=== PATIENT | male | born 1945 | race Caucasian/White ===

== ENCOUNTER → 2021-01-17 09:28 | Outpatient (BNVA) | payer MEDICARE, SELFPAY | PROVIDERS: Referring Provider Internal Medicine; Visit Provider Podiatrist Foot & Ankle Surgery | DX: M79.671 Pain in right foot (principal); M19.071 Primary osteoarthritis, right ankle and foot | CPT/HCPCS: 73630 ==

== ENCOUNTER 2021-02-05 13:44 | Outpatient (CLI) | payer MEDICARE, SELFPAY ==
[2021-02-05 15:01] LABS: Basophils % 0.1 %; Eosinophils % 0.3 %; Hematocrit 33.9 % (42.0-52.0); Hemoglobin 10.8 g/dL (11.7-16.6); Lymphocytes # 1.2 10^3/uL (0.8-4.8); Lymphocytes % 16.2 %; Mean Corpuscular HGB Conc 31.9 g/dL (30.0-36.0); Mean Corpuscular Hemoglobin 26.8 pg (28.0-34.0); Mean Corpuscular Volume 84.1 fl (80-94); Monocytes # 1.5 10^3/uL (0.2-0.9); Monocytes % 19.1 %; Neutrophils # 4.51 10^3/uL (1.8-7.7); Neutrophils % 59.1 %; Nucleated Red Blood Cells % 0 %; Platelet Count 127 10^3/cmm (130-400); Red Blood Count 4.03 10^6/uL (4.1-5.3); Red Cell Distribution Width 17.5 % (12.1-15.1); White Blood Count 7.6 10^3/uL (4.0-10.0)
[2021-02-05 15:23] LABS: Slide Review Slide Review Perform
--- NOTE | 2021-02-09 11:50 | ONC CON_ITS ---
Dr. Miguel New Patient Note Patient: Serg Lindsey Unit #: [id number]: 1945 Dicatated By: Paul Miguel M.D.Date of Visit: Feb 05, 2021 Onc MED New Patient/Consult Referring Physician: Dr. Ben Wan M.D. History of Present Illness: Mr. Serg Lindsey, is a 75-year-old gentleman, usually in a good health, rarely see a physician until recently went to Dr. Wan for routine follow-up, lab work-up done on December 13, 2020 showed white blood count 9.7 hemoglobin 11.6 g normal being 13.5-18, hematocrit 35.4 platelets 140,000 normal being 150-451 and Differential shows monocytes 21.7% normal being less than 10% repeat CBC done on December 21, 2020 showed white blood count 12.2 hemoglobin 11.9 hematocrit 35.5 platelets 137,000 and anemia work-up done on December 21, 2020 shows iron 138 TIBC 254 iron saturation 54% vitamin B12 444 TSH 1.50,Ferritin 112, reticulocyte count 2.1%, peripheral blood smear shows leukocytosis and monocytosis and presence of schistocytes Patient denies any night sweats, denies any recurrent fever but weight loss, patient is on keto diet, denies smoking but consume alcohol/martini on regular basis. Denies any melena hematochezia, denies any hemoptysis hematemesis, denies any jaundice, denies any urine or stool color changes, denies any gum swelling, denies any recent flulike symptom or infection Past Medical History: Mr. Lindsey's medical history consists of hypertension. Past Surgical History: Mr. Lindsey's surgical/procedural history consists of vericose vein ligation. Medications: Lisinopril 1 Tablet (of 10 mg) Oral daily, Meloxicam 1 Tablet (of 15 mg) Oral daily, traMADol HCl 1 Tablet (of 50 mg) Oral q 6 hours PRN Allergies: No Known Allergies. Social History: Mr. Lindsey is single. He drinks occasionally. Family History: The family history is unremarkable. Review Of Symptoms: Review of Systems is not available for this patient. Vital Signs: Performed on Feb 05, 2021 15:51: 0, 0, 29.56, 2.11 sq.m, 70 in, 98 %, 73 /min, 20 /min, 171/84 mm(hg) (HIGH), 98.8 F, and 206.0 lbs (HIGH). Performance Status: 0 - Fully active, able to carry on all predisease activities without restrictions. (ECOG) Physical Examination: ENMT - No mouth sores, no thrush, no jaundice, no cervical lymphadenopathy, Respiratory - Lungs are clear to auscultation, Cardiovascular - Regular rate and rhythm of heart, Abdomen - Soft, bowel sounds present, Extremities - No visible edema. Lab/Imaging: Most recent lab results are not available for this patient. Impression: Normocytic normochromic anemia etiology unclear, anemia work-up including iron studies, B12 done on December 21, 2020 showed normal values but low reticulocyte count, consistent with underlying bone marrow etiology, considering his age myelodysplasia cannot be ruled out Monocytosis observed on CBC done on December 13, 2020-on February 05, 2021 Plan: Discussed with patient regarding his labs from today shows white blood count 7.6, hemoglobin 10.8 hematocrit 33.9 platelets 127,000 differential shows absolute neutrophil count 4510, monocytes 1500 normal being less than 900, MCV 84.1 Clinically, patient is doing well with no new signs symptoms, with well compensated mild anemia, etiology unclear as initial anemia work-up done by PMD including iron studies, B12 level, shows normal value but mildly low reticulocyte count, considering his age underlying myelodysplasia cannot be ruled out, other concern is mild monocytosis, etiology could be multifactorial too, including underlying inflammation or autoimmune disorder or recovery from recent infection or bone marrow etiology like chronic myelomonocytic leukemia or monocytic or myeloproliferative disorder or leukemoid reaction, as CBC done on December 21, 2020 showed mild leukocytosis, which has resolved now and patient also has mild thrombocytopenia etiology again could be underlying MDS or myeloproliferative disorder discussed with patient and There is no evidence of jaundice and his lab work-up done on December 13, 2020 showed bilirubin was 0.8, schistocytes seen on peripheral smear could be artifact or patient may have mild hemolysis at this point, bone marrow was recommended versus observation and repeating CBC if there is a progressive leukocytosis or monocytosis or progressive thrombocytopenia consider bone marrow otherwise observe, patient prefer observation and he will return to clinic in 2 months with CBC, patient was advised in case there is a evidence of gross bleeding or progressive generalized weakness and fatigue or gum bleeding, or jaundice he need to call us otherwise return to clinic 2 weeks with CBC with a differential Signed By: Paul Miguel M.D. <<Signature on File>>
== END 2021-02-05 13:45 | disposition home or self-care (01) ==
LOC: ONCMED 13:51
PROVIDERS: PCP Internal Medicine; Visit Provider Internal Medicine Hematology & Oncology
DX: D64.9 Anemia, unspecified (principal); D72.821 Monocytosis (symptomatic); Z79.899 Other long term (current) drug therapy
CPT/HCPCS: 36415; 85025; 99204

== ENCOUNTER 2021-04-17 09:47 | Outpatient (CLI) | payer MEDICARE, SELFPAY ==
[2021-04-17 10:21] LABS: Basophils % 0.4 %; Eosinophils # 0.1 10^3/uL (0.0-0.8); Hematocrit 35.3 % (42.0-52.0); Hemoglobin 11.5 g/dL (11.7-16.6); Lymphocytes # 1.7 10^3/uL (0.8-4.8); Lymphocytes % 15.5 %; Mean Corpuscular HGB Conc 32.6 g/dL (30.0-36.0); Mean Corpuscular Hemoglobin 26.9 pg (28.0-34.0); Mean Corpuscular Volume 82.7 fl (80-94); Monocytes # 2.5 10^3/uL (0.2-0.9); Monocytes % 22.4 %; Neutrophils # 6.09 10^3/uL (1.8-7.7); Neutrophils % 54.9 %; Nucleated Red Blood Cells % 0 %; Platelet Count 113 10^3/cmm (130-400); Red Blood Count 4.27 10^6/uL (4.1-5.3); White Blood Count 11.1 10^3/uL (4.0-10.0)
[2021-04-17 10:56] LABS: Alanine Aminotransferase 7 U/L (0-41); Albumin Level 4.8 g/dL (3.5-5.2); Alkaline Phosphatase 66 IU/L (40-130); Anion Gap 16.3 (5-19); Aspartate Amino Transferase 14 U/L (0-40); Blood Urea Nitrogen 10 mg/dL (8-23); Calcium 9.7 mg/dL (8.5-10.5); Carbon Dioxide 24 mmol/L (22-29); Chloride 101 mmol/L (98-107); Globulin 2.8 g/dL (1.3-4.6); Glucose 111 mg/dL (65-115); Osmolality Calculated 284 mOsm/kg (285-295); Potassium 4.3 mmol/L (3.5-5.1); Sodium 137 mmol/L (136-145); Total Bilirubin 0.8 mg/dL (0.15-1.2); Total Protein 7.6 g/dL (6.6-8.7)
[2021-04-17 11:05] LABS: Slide Review Slide Review Perform
--- NOTE | 2021-04-19 16:57 | ONC FU_ITS ---
Dr. Miguel follow up note Patient: Serg Lindsey Unit #: [id number]: 1945 Dicatated By: Paul Miguel M.D.Date of Visit:Apr 17, 2021 Onc Med Follow-up/Prog Note History of Present Illness: Mr. Serg Lindsey, is a 75-year-old gentleman, usually in a good health, rarely see a physician until recently went to Dr. Wan for routine follow-up, lab work-up done on December 13, 2020 showed white blood count 9.7 hemoglobin 11.6 g normal being 13.5-18, hematocrit 35.4 platelets 140,000 normal being 150-451 and Differential shows monocytes 21.7% normal being less than 10% repeat CBC done on December 21, 2020 showed white blood count 12.2 hemoglobin 11.9 hematocrit 35.5 platelets 137,000 and anemia work-up done on December 21, 2020 shows iron 138 TIBC 254 iron saturation 54% vitamin B12 444 TSH 1.50,Ferritin 112, reticulocyte count 2.1%, peripheral blood smear shows leukocytosis and monocytosis and presence of schistocytes Patient denies any night sweats, denies any recurrent fever but weight loss, patient is on keto diet, denies smoking but consume alcohol/martini on regular basis. Denies any melena hematochezia, denies any hemoptysis hematemesis, denies any jaundice, denies any urine or stool color changes, denies any gum swelling, denies any recent flulike symptom or infection Came for follow-up, denies any specific complaints, no fever chills, no nausea or vomiting, no diarrhea constipation, no melena or hematochezia, no nosebleed or gum bleed, no hemoptysis hematemesis, no headaches, no jaundice, no dysuria or hematuria, no sinus related symptoms, overall feeling well Medications: Lisinopril 1 Tablet (of 10 mg) Oral daily, traMADol HCl 1 Tablet (of 50 mg) Oral q 6 hours PRN Allergies: No Known Allergies. Review of Systems: Review of Systems is not available for this patient. Vital Signs: Performed on Apr 17, 2021 11:41 Height - 70.00 in Weight - 210.6 lbs (HIGH) BSA - 2.13 sq.m BMI - 30.22 (HIGH) Temperature - 97.8 F (LOW) Pulse - 71 /min Respiration - 20 /min BP - 171/78 mm(hg) (HIGH) O2 Sat - 99 % Pain - 0 Fatigue - 2 Performance Status: 1 - No physically strenuous activity, but ambulatory and able to carry out light or sedentary work (e.g. office work, light house work). (ECOG) Physical Examination: Respiratory - Lungs are clear to auscultation, Cardiovascular - Regular rate and rhythm of heart, Abdomen - Soft, bowel sounds present, Extremities - No visible edema. Lab/Imaging: Most recent lab results are not available for this patient. Impression: Normocytic normochromic anemia etiology unclear, anemia work-up including iron studies, B12 done on December 21, 2020 showed normal values but low reticulocyte count, consistent with underlying bone marrow etiology, considering his age myelodysplasia cannot be ruled out Monocytosis observed on CBC done on December 13, 2020-on February 05, 2021 Plan: Discussed with patient regarding his labs white blood count 11.1 hemoglobin 11.5 g compared to 10.8 previously hematocrit 35.3 platelets 113,000 compared to 127,000 previously and MCV 82.7 CMP within normal limits Clinically, patient doing well with no new signs symptoms his follow-up CBC shows improvement in his mild anemia but persistent mild thrombocytopenia and now mild leukocytosis, patient has no signs symptom suggestive of infection, at this point ,we will continue to monitor and then he will return to clinic in the last week of May 2021 with CBC, as on June 08, patient is going out of [facility] to [place] for 2 months Signed By: Paul Miguel M.D. <<Signature on File>>
== END 2021-04-17 09:48 | disposition home or self-care (01) ==
LOC: ONCMED 09:52
PROVIDERS: PCP Internal Medicine; Visit Provider Internal Medicine Hematology & Oncology
DX: D64.9 Anemia, unspecified (principal); D72.821 Monocytosis (symptomatic); Z79.899 Other long term (current) drug therapy
CPT/HCPCS: 36415; 80053; 85025; 99214

== ENCOUNTER 2021-06-06 11:12 | Outpatient (CLI) | payer MEDICARE, SELFPAY ==
[2021-06-06 11:59] LABS: Hematocrit 33.3 % (42.0-52.0); Hemoglobin 10.7 g/dL (11.7-16.6); Mean Corpuscular HGB Conc 32.1 g/dL (30.0-36.0); Mean Corpuscular Volume 83.9 fl (80-94); Platelet Count 105 10^3/cmm (130-400); Red Blood Count 3.97 10^6/uL (4.1-5.3); Red Cell Distribution Width 17.7 % (12.1-15.1); White Blood Count 10.1 10^3/uL (4.0-10.0)
[2021-06-06 12:31] LABS: Mean Platelet Volume 9.7 fL (7.4-10.4)
[2021-06-06 12:32] LABS: Slide Review Slide Review Perform
[2021-06-06 12:33] LABS: Absolute Neutrophil 7.3 10^3/cmm (1.4-6.5); Absolute Segmented Neutrophil 6.7 10/cmm (1.6-7.1); Band Neutrophils Absolute 0.6 10^3/cmm (0.0-1.2); Eosinophils 0 %; Lymphocytes 15 %; Lymphocytes Absolute 1.5 10^3/cmm (1.2-3.4); Platelet Estimate Normal (Normal); Segmented Neutrophils 66 %; Total Cells Counted 100 (0-100)
--- NOTE | 2021-06-11 08:02 | ONC FU_ITS ---
Dr. Miguel follow up note Patient: Serg Lindsey Unit #: [id number]: 1945 Dicatated By: Paul Miguel M.D.Date of Visit:Jun 06, 2021 Onc Med Follow-up/Prog Note History of Present Illness: Mr. Serg Lindsey, is a 75-year-old gentleman, usually in a good health, rarely see a physician until recently went to Dr. Wan for routine follow-up, lab work-up done on December 13, 2020 showed white blood count 9.7 hemoglobin 11.6 g normal being 13.5-18, hematocrit 35.4 platelets 140,000 normal being 150-451 and Differential shows monocytes 21.7% normal being less than 10% repeat CBC done on December 21, 2020 showed white blood count 12.2 hemoglobin 11.9 hematocrit 35.5 platelets 137,000 and anemia work-up done on December 21, 2020 shows iron 138 TIBC 254 iron saturation 54% vitamin B12 444 TSH 1.50,Ferritin 112, reticulocyte count 2.1%, peripheral blood smear shows leukocytosis and monocytosis and presence of schistocytes Patient denies any night sweats, denies any recurrent fever but weight loss, patient is on keto diet, denies smoking but consume alcohol/martini on regular basis. Denies any melena hematochezia, denies any hemoptysis hematemesis, denies any jaundice, denies any urine or stool color changes, denies any gum swelling, denies any recent flulike symptom or infection Came for follow-up, denies any specific complaints, no fever chills, no nausea or vomiting, no diarrhea or constipation, no sinus related symptoms, no dysuria or hematuria, no nosebleed or gum bleed Medications: Lisinopril 1 Tablet (of 10 mg) Oral daily Allergies: No Known Allergies. Review of Systems: Review of Systems is not available for this patient. Vital Signs: Performed on Jun 06, 2021 15:52 Height - 70.00 in BP - 179/73 mm(hg) (HIGH) Performed on Jun 06, 2021 15:52 Height - 70.00 in Weight - 205.8 lbs (LOW) BSA - 2.11 sq.m BMI - 29.53 Temperature - 97.6 F (LOW) Pulse - 77 /min Respiration - 18 /min BP - 191/65 mm(hg) (HIGH) O2 Sat - 98 % Pain - 0 Fatigue - 0 Performance Status: 0 - Fully active, able to carry on all predisease activities without restrictions. (ECOG) Physical Examination: ENMT - No mouth sores, no thrush, no jaundice, no peripheral lymphadenopathy, Respiratory - Lungs are clear to auscultation, Cardiovascular - Regular rate and rhythm of heart, Abdomen - Soft, bowel soundsn Present, Extremities - No visible edema. Lab/Imaging: Most recent lab results are not available for this patient. Impression: Normocytic normochromic anemia etiology unclear, anemia work-up including iron studies, B12 done on December 21, 2020 showed normal values but low reticulocyte count, consistent with underlying bone marrow etiology, considering his age myelodysplasia cannot be ruled out Monocytosis observed on CBC done on December 13, 2020-on February 05, 2021 Plan: Discussed with patient regarding his labs white blood count 10.1 compared to 11.1 previously, hemoglobin 10.7 g, hematocrit 33.3 MCV 83.9, platelets 105,000 compared to 113,000 previously Clinically, patient doing well with no new signs symptoms history of gross bleeding, his follow-up CBC shows persistent but mild anemia and progressive thrombocytopenia and now persistent mild leukocytosis. His peripheral blood smear was reviewed with pathology and it showed platelet clumping, which could be the reason for progressive mild pseudo-thrombocytopenia and no obvious malignant white cell morphology, so his mild leukocytosis could be reactive and mild anemia could be due to underlying myelodysplasia as anemia work-up done initially was inconclusive. We will continue to monitor, patient is going out of town for 2 months, he will return to clinic in August 2021 with CBC, if there is a progression, may consider bone marrow evaluation. Signed By: Paul Miguel M.D. <<Signature on File>>
== END 2021-06-06 11:13 | disposition home or self-care (01) ==
PROVIDERS: Internal Medicine Hematology & Oncology; PCP Internal Medicine; Visit Provider Nurse Practitioner Family
DX: D64.9 Anemia, unspecified (principal); D69.6 Thrombocytopenia, unspecified; D72.829 Elevated white blood cell count, unspecified
CPT/HCPCS: 36415; 80503; 85007; 85025; 99214